=== PATIENT | female | born 1945 | race Caucasian/White ===

== ENCOUNTER → 2019-08-02 | Outpatient (CLI) | payer OTHER | LOC: CAT 13:32 | DX: Z13.6 Encounter for screening for cardiovascular disorders (principal); E78.00 Pure hypercholesterolemia, unspecified; I25.10 Atherosclerotic heart disease of native coronary artery without angina pectoris ==

== ENCOUNTER → 2019-08-23 | Outpatient (CLI) | payer OTHER ==
--- NOTE | 2019-09-01 13:27 | TST ---
[facility] [place] [address] [address] TREADMILL STRESS TEST Name: PINA CHING Room #: [facility]#: [id number] Admission: 08/23/19 Attend Phys: Bryson Navas Discharge: Date of : 47 Report #: [id number] THIS REPORT FOR: //name// APPROVED REPORT Patient Location: Out-Patient Room #: Stress Nurse: Breanna Luevano RN The patient exercised according to the EMILIA protocol for 6 mins; achieving a work level of 7 METS. The resting heart rate of 70 bpm shirin to a maximum heart rate of 162 bpm. This value represent 110% of the maximal, age-predicted heart rate. The resting blood pressure of 138/86 mmHg, shirin to a maximum blood pressure of 174/77 mmHg. The exercise test was stopped due to Maximal effort Conclusion 1. Subjectively negative for ischemia at this heart rate and double product 2. Elective cardiographic C negative for ischemia at this heart rate and double product 3. Average functional capacity <ELECTRONICALLY SIGNED> By: Raudel Lemons MD 09/01/19 1326 25 1326 Raudel Lemons MD /INF
== END ==
LOC: CV 11:09
DX: R93.1 Abnormal findings on diagnostic imaging of heart and coronary circulation (principal)

== ENCOUNTER 2020-01-11 19:06 | Emergency (ER) | payer OTHER ==
[~2020-01-11] VITALS: Ht 172.7 cm; Wt 69.0 kg
[2020-01-11] MEDS ORDERED: LIPITOR 40 MG T40 M1 PO (19:26)
[2020-01-11 19:41] LABS: URINE BILIRUBIN NEGATIVE (Negative); URINE BLOOD TRACE (Negative); URINE CLARITY CLEAR; URINE COLOR YELLOW; URINE GLUCOSE-RANDOM* NEGATIVE (Negative); URINE KETONES TRACE (Negative); URINE NITRITE-REFLEX NEGATIVE (Negative); URINE PROTEIN (DIPSTICK) NEGATIVE (Negative); URINE UROBILINOGEN 0.2 E.U./dl (0.2-1.0)
[2020-01-11 19:43] LABS: URINE LEUKOCYTES-REFLEX 2+ (Negative)
[2020-01-11 19:53] LABS: BACTERIA-REFLEX 1-9 Few /HPF (None Seen); CASTS None Seen /LPF (None Seen); CRYSTALS None Seen /LPF (None Seen); SQUAMOUS 0-3 Few /LPF (0-3); URINE RBC 0-2 Rare /HPF (0-2)
[2020-01-11 19:55] LABS: HEMATOCRIT 38.3 % (37.0-47.0); HEMOGLOBIN 12.7 gm/dL (12.0-15.0); MCH 31.9 pg (26.0-34.0); MCHC 33.2 g/dL (28.0-37.0); MCV 96.1 fL (80.0-100.0); RBC 3.98 mil/uL (4.20-5.00); RDW 13.5 % (10.5-14.5); WBC 5.6 thou/uL (4.0-11.0)
[2020-01-11 20:02] LABS: ANION GAP 5 mmol/L (7-16); BUN 18 mg/dL (7-18); CALCIUM 8.8 mg/dL (8.5-10.1); CHLORIDE 106 mmol/L (98-107); CO2 31 mmol/L (21-32); CREATININE 1.7 mg/dL (0.6-1.0); GLUCOSE 85 mg/dL (74-106); POTASSIUM 4.4 mmol/L (3.5-5.1); SODIUM 142 mmol/L (136-145)
[2020-01-11 20:12] LABS: ALBUMIN 3.6 g/dL (3.4-5.0); SGOT 24 U/L (15-37); SGPT 18 U/L (30-65); TOTAL BILIRUBIN 0.2 mg/dL (<0.1-1.0); TOTAL PROTEIN 6.9 g/dL (6.4-8.2); TROPONIN-I <0.06 ng/mL (<0.06)
[2020-01-11 22:07] VITALS: BP 106/78
--- NOTE | 2020-01-12 08:15 | EKG ---
[facility] [place] [address] ELECTROCARDIOGRAM REPORT Name: PINA CHING Room #: [facility]P [facility]#: [id number] Admission: 01/11/20 Attend Phys: Discharge: 01/11/20 Date of : 47 Report #: [id number] THIS REPORT FOR: cc: Bryson Navas MD, Herbert M. MD Couchonnal, Luis F. 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
== END 2020-01-11 22:10 | disposition home or self-care (01) ==
LOC: ER 19:06
PROVIDERS: Student in an Organized Health Care Education/Training Program
DX: R53.1 Weakness (principal); R00.2 Palpitations; R53.83 Other fatigue; R11.0 Nausea; R07.89 Other chest pain; E78.5 Hyperlipidemia, unspecified; Z79.899 Other long term (current) drug therapy